=== PATIENT | male | born 1935 ===

== ENCOUNTER 2021-07-28 14:47 | Emergency (ER) | payer MEDICARE, BC ==
[2021-07-28 16:39] VITALS: PULSE 72; TEMP 97.8
--- NOTE | 2021-07-28 17:57 | ED ---
General Adult HPI - General Chief complaint: Recheck/Abnormal Lab/Rx Stated complaint: Covid +, Infusion Time Seen by Provider: 07/28/21 17:25 Source: patient, RN notes reviewed Mode of arrival: ambulatory Limitations: no limitations - History of Present Illness Initial comments: This is a 6-year-old male who started developing a runny nose sore throat cough and slight headache yesterday was diagnosed with Covid19 swab that was performed yesterday at a local urgent care clinic. His actually had a similar symptoms started several days earlier she was diagnosed positive also. He has no overt chest pain no palpitations no other symptoms report he is requesting the antibody. - Related Data Allergies Allergy/AdvReac Type Severity Reaction Status Date / Time albuterol Allergy Rash/Hives Verified 07/28/21 16:35 Review of Systems ROS Statement: Those systems with pertinent positive or pertinent negative responses have been documented in the HPI. ROS Other: All systems not noted in ROS Statement are negative. Past Medical History Past Medical History: No Reported History, COPD, Hypertension History of Any Multi-Drug Resistant Organisms: None Reported Past Surgical History: No Surgical Hx Reported Past Psychological History: No Psychological Hx Reported Smoking Status: Never smoker Past Alcohol Use History: None Reported Past Drug Use History: None Reported General Exam - General Exam Comments Initial Comments: This is a well-developed well-nourished awake alert oriented times 3 male Limitations: no limitations General appearance: alert, in no apparent distress Head exam: Present: atraumatic, normocephalic, normal inspection Eye exam: Present: normal appearance, PERRL, EOMI. Absent: scleral icterus, conjunctival injection, periorbital swelling ENT exam: Present: normal exam, mucous membranes moist Neck exam: Present: normal inspection. Absent: tenderness, meningismus, lymphadenopathy Respiratory exam: Present: normal lung sounds bilaterally. Absent: respiratory distress, wheezes, rales, rhonchi, stridor Cardiovascular Exam: Present: regular rate, normal rhythm, normal heart sounds. Absent: systolic murmur, diastolic murmur, rubs, gallop, clicks GI/Abdominal exam: Present: soft, normal bowel sounds. Absent: distended, tenderness, guarding, rebound, rigid Extremities exam: Present: normal inspection, full ROM, normal capillary refill. Absent: tenderness, pedal edema, joint swelling, calf tenderness Back exam: Present: normal inspection Neurological exam: Present: alert, oriented X3, CN II-XII intact Psychiatric exam: Present: normal affect, normal mood Skin exam: Present: warm, dry, intact, normal color. Absent: rash Course Vital Signs 07/28/21 16:35 Temperature 97.8 F Pulse Rate 72 Respiratory 20 Rate Blood Pressure 146/77 O2 Sat by Pulse 97 Oximetry Medical Decision Making - Medical Decision Making I did discuss findings with the patient is a candidate for antibody. He will receive the same. Disposition Clinical Impression: COVID-19, Viral syndrome Disposition: HOME SELF-CARE Condition: Good Instructions (If sedation given, give patient instructions): Coronavirus Disease 2019 (COVID-19), Viral Syndrome (ED) Is patient prescribed a controlled substance at d/c from ED?: No Referrals: Gonzalo Roberts MD [Primary Care Provider] - 1-2 days
[2021-07-28] MEDS ORDERED: SODIUM CHLORIDE 0.9% 50 ML IVPB ONE (18:00)
[2021-07-28 18:05] VITALS: BP 148/78; RESP 18
[2021-07-28] MEDS ORDERED: CASIRIVIMAB (REGN10933) (EUA) 600 MG, IMDEVIMAB (REGN10987) (EUA) 600 MG in SODIUM CHLO... IVPB ONE (18:15)
== END 2021-07-28 19:37 | disposition home or self-care (01) ==
LOC: EC 14:47
DX: U07.1 COVID-19 (principal); J44.9 Chronic obstructive pulmonary disease, unspecified; I10 Essential (primary) hypertension; Z88.8 Allergy status to other drugs, medicaments and biological substances
CPT/HCPCS: 99282; 96360; M0243; Q0244; 96361